=== PATIENT | female | born 1945 | race Caucasian/White ===

== ENCOUNTER 2017-04-12 14:09 | Outpatient (CLI) | payer MEDICARE, OTHER ==
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
== END 2017-04-12 14:10 | disposition home or self-care (01) ==
LOC: TBSIIMAG 14:09
PROVIDERS: ATTEND Neurological Surgery
DX: M48.56XA Collapsed vertebra, not elsewhere classified, lumbar region, initial encounter for fracture (principal); M43.8X6 Other specified deforming dorsopathies, lumbar region
CPT/HCPCS: 72100